=== PATIENT | male | born 1945 | race Caucasian/White ===

== ENCOUNTER 2018-04-19 04:13 | Outpatient (CLI) | payer OTHER, SELFPAY ==
[2018-04-19 07:29] LABS: INR 2.5 (1.0-3.5)
== END 2018-04-19 04:14 ==
PROVIDERS: PCP Internal Medicine; Visit Provider Internal Medicine
DX: I48.2 Chronic atrial fibrillation (principal)
CPT/HCPCS: 36415; 85610

== ENCOUNTER 2018-04-30 02:40 | Outpatient (CLI) | payer OTHER, SELFPAY | END 2018-04-30 02:41 | PROVIDERS: PCP Internal Medicine; Visit Provider Internal Medicine | DX: I48.91 Unspecified atrial fibrillation (principal) | CPT/HCPCS: 93225 ==

== ENCOUNTER 2018-05-02 00:39 | Outpatient (CLI) | payer OTHER, SELFPAY ==
--- NOTE | 2018-05-02 07:30 | MERGE_ITS ---
*[facility]* *[facility]* [address] [place] [address] Date of study: 05/02/2018 Transthoracic Echocardiography M-mode, complete 2D, complete spectral Doppler, and color Doppler *STUDY CONCLUSIONS* Impressions: The patient was in atrial fibrillation throughout study. This rhythm can interfere with accurate global and segmental wall motion analysis. Summary: 1. Left ventricle: The cavity size was normal. Wall thickness was normal. Systolic function was normal. The estimated ejection fraction was 55-60%. Wall motion was normal; there were no regional wall motion abnormalities. 2. Mitral valve: There was mild regurgitation. 3. Left atrium: The atrium was severely dilated. 4. Right ventricle: The cavity size was normal. Wall thickness was normal. Systolic function was normal. 5. Right atrium: The atrium was severely dilated. 6. Tricuspid valve: There was moderate regurgitation. 7. Pulmonary arteries: Pulmonary systolic pressure was moderately increased, in the range of 45mm Hg to 50mm Hg. *PATIENT PRESENTATION* Height: 175.3cm ((69in) ) S/D Pressure: 175 / 63 Weight: 103kg ((226.5lb) ) BSA: 2.27m^2 Test start time: 07:40 AM. Test stop time: 08:40 AM. ORDERING Nick Goode MD REFERRING Nick Goode MD PERFORMING Unknown PERFORMING [facility] DIRECTOR TALENT MANAGEMENT RT Warner (R)(CT)KONRAD *PROCEDURE DATA* Procedure information: The patient was identified by two identifiers. This study was interpreted by [facility]. Pertinent images and digital data are archived for permanent storage and are available for subsequent review. No prior study was available for comparison. Study status: Routine. Transthoracic echocardiography. M-mode, complete 2D, complete spectral Doppler, and color Doppler. A Transthoracic Echocardiogram was performed. Scanning was performed from the parasternal, apical, subcostal, and suprasternal notch acoustic windows. Images were obtained using an [id number] cardiac ultrasound machine. Image quality was adequate. Study completion: The patient tolerated the procedure well. There were no complications. History: PMH: . Hx of CHF. Dx chronic afib.. Hx CAD. *CARDIAC ANATOMY* Left ventricle: The cavity size was normal. Wall thickness was normal. Systolic function was normal. The estimated ejection fraction was 55-60%. Wall motion was normal; there were no regional wall motion abnormalities. The study was not technically sufficient to allow evaluation of LV diastolic dysfunction due to atrial fibrillation. Aortic valve: Trileaflet; normal thickness leaflets. Mobility was not restricted. Doppler: Transvalvular velocity was within the normal range. There was no stenosis. There was no significant regurgitation. VTI ratio of LVOT to aortic valve: 0.8. Valve area (VTI): 2.6cm^2. Indexed valve area (VTI): 1.1cm^2/m^2. Peak velocity ratio of LVOT to aortic valve: 0.74. Valve area (Vmax): 2.4cm^2. Indexed valve area (Vmax): 1cm^2/m^2. Mean velocity ratio of LVOT to aortic valve: 0.72. Valve area (Vmean): 2.3cm^2. Indexed valve area (Vmean): 1cm^2/m^2. Mean gradient (S): 5.3mm Hg. Peak gradient (S): 11.5mm Hg. Aorta: Aortic root: The aortic root was normal in size. Mitral valve: Structurally normal valve. Mobility was not restricted. Doppler: Transvalvular velocity was within the normal range. There was no evidence for stenosis. There was mild regurgitation. Valve area by pressure half-time: 4.1cm^2. Indexed valve area by pressure half-time: 1.8cm^2/m^2. Peak gradient (D): 7.1mm Hg. Left atrium: The atrium was severely dilated. Right ventricle: The cavity size was normal. Wall thickness was normal. Systolic function was normal. Pulmonic valve: Structurally normal valve. Doppler: Transvalvular velocity was within the normal range. There was no evidence for stenosis. There was no significant regurgitation. Peak gradient (S): 4.5mm Hg. Tricuspid valve: Structurally normal valve. Doppler: Transvalvular velocity was within the normal range. There was no evidence for stenosis. There was moderate regurgitation. Pulmonary artery: Pulmonary systolic pressure was moderately increased, in the range of 45mm Hg to 50mm Hg. Right atrium: The atrium was severely dilated. Pericardium: There was no pericardial effusion. Systemic veins: Inferior vena cava: Well visualized. The vessel was patent and normal in size. The respirophasic diameter changes were blunted (less than 50%). Baseline ECG: Bradycardia. Measurements Left ventricle Value Reference LV ID, ED, PLAX 5.6 cm 3.5 - 6.0 LV ID, ES, PLAX 3.6 cm 2.1 - 4.0 LV PW thickness, ED, PLAX 1.0 cm LV end-diastolic volume, 1-p A2C 114 ml LV ejection fraction, 1-p A2C 60 % LV end-diastolic volume, 1-p A4C 122 ml LV ejection fraction, 1-p A4C 54 % LV e', lateral 0.076 m/sec LV E/e', lateral 18 LV e', medial 0.068 m/sec LV E/e', medial 20 LV e', average 0.072 m/sec LV E/e', average 19 Ventricular septum Value Reference IVS thickness, ED, PLAX 1.1 cm LVOT Value Reference LVOT ID, A-P 2.0 cm LVOT area 3.2 cm^2 LVOT peak velocity, S 1.25 m/sec LVOT mean velocity, S 0.77 m/sec LVOT VTI, S 31.2 cm LVOT peak gradient, S 6.3 mm Hg LVOT mean gradient, S 2.9 mm Hg Stroke volume (SV), LVOT DP 100 ml Stroke index (SV/bsa), LVOT DP 44 ml/m^2 Aortic valve Value Reference Aortic valve peak velocity, S 1.7 m/sec Aortic valve mean velocity, S 1.07 m/sec Aortic valve VTI, S 39.0 cm Aortic mean gradient, S 5.3 mm Hg Aortic peak gradient, S 11.5 mm Hg VTI ratio, LVOT/AV 0.8 Aortic valve area, VTI 2.6 cm^2 Velocity ratio, peak, LVOT/AV 0.74 Aortic valve area, peak velocity 2.4 cm^2 Velocity ratio, mean, LVOT/AV 0.72 Aortic valve area, mean velocity 2.3 cm^2 Aortic valve area/bsa, mean velocity 1 cm^2/m^2 Aorta Value Reference Aortic root ID, ED 3.6 cm Ascending aorta ID, A-P, S 3.6 cm RVOT Value Reference RVOT VTI, S 23.5 cm Left atrium Value Reference LA ID, A-P, ES 5.0 cm LA ID/bsa, A-P 2.2 cm/m^2 <=2.2 LA area, ES, A4C (H) 37.6 cm^2 8.8 - 23.4 LA area, ES, A2C 32 cm^2 LA volume/bsa, ES, 1-p A4C 74 ml/m^2 LA volume, ES, 2-p 131 ml LA volume/bsa, ES, 2-p 58 ml/m^2 LA/aortic root ratio 1.39 Mitral valve Value Reference Mitral E-wave peak velocity 1.34 m/sec Mitral deceleration time 185 ms 150 - 230 Mitral pressure half-time 54 ms Mitral peak gradient, D 7.1 mm Hg Mitral valve area, PHT, DP 4.1 cm^2 Tricuspid valve Value Reference Tricuspid regurg peak velocity 3.4 m/sec Tricuspid peak RV-RA gradient 45.5 mm Hg Right atrium Value Reference RA area, ES, A4C (H) 30.7 cm^2 8.3 - 19.5 Pulmonic valve Value Reference Pulmonic peak gradient, S 4.5 mm Hg Legend: (L) and (H) shanice values outside specified reference range. I have personally reviewed the images and have reviewed and edited the reported findings. Electronically signed by Misael Jones 05/02/2018 09:12
== END 2018-05-02 00:40 ==
PROVIDERS: PCP Internal Medicine; Visit Provider Internal Medicine
DX: I48.91 Unspecified atrial fibrillation (principal); I08.1 Rheumatic disorders of both mitral and tricuspid valves; I51.7 Cardiomegaly
CPT/HCPCS: 93306

== ENCOUNTER 2018-05-03 08:00 | Outpatient (CLI) | payer OTHER, SELFPAY ==
--- NOTE | 2018-05-04 13:53 | HOLTER_ITS ---
DATE OF DICTATION: May 04, 2018 INDICATION: AFib Monitoring period 24 hours. Baseline atrial fibrillation. Average heart rate 42 bpm, minimum heart rate 35 bpm, maximum heart rate 59 bpm. Rare isolated ventricular ectopy. No non-sustained VT. Patient in atrial fibrillation throughout monitoring period. No significant pauses. Overall patient's atrial fibrillation appears very well-controlled with periods of slow ventricular r ates. Suggest reducing AV mason blocking agent dosing. No diary entries.
== END 2018-05-03 08:01 ==
PROVIDERS: PCP Internal Medicine; Visit Provider Internal Medicine
DX: I48.91 Unspecified atrial fibrillation (principal)
CPT/HCPCS: 93226

== ENCOUNTER 2018-05-04 09:30 | Outpatient (CLI) | payer OTHER, SELFPAY | END 2018-05-04 09:31 | PROVIDERS: PCP Internal Medicine; Visit Provider Internal Medicine Cardiovascular Disease | DX: I48.91 Unspecified atrial fibrillation (principal) | CPT/HCPCS: 93227 ==

== ENCOUNTER 2018-08-14 09:38 | Outpatient (REF) | payer OTHER, SELFPAY ==
[2018-08-14 13:19] LABS: Anion Gap 10.9 mmol/L (3-11); BUN 27 mg/dL (7-18); CO2 29.1 mmol/L (21.0-32.0); CREATININE 1.56 mg/dL (0.70-1.30); Calcium 9.8 mg/dL (8.5-10.1); Chloride 98 mmol/L (98-107); Estimated GFR 43.72 (mL/min/1.73m2); Glucose 267 mg/dL (70-100); Potassium 3.7 mmol/L (3.5-5.1); Sodium 138 mmol/L (136-145)
== END 2018-08-14 09:58 ==
LOC: NCHCN 09:38
PROVIDERS: PCP Internal Medicine; Visit Provider Internal Medicine
DX: E11.9 Type 2 diabetes mellitus without complications (principal); I10 Essential (primary) hypertension; R60.9 Edema, unspecified; I48.91 Unspecified atrial fibrillation; I25.10 Atherosclerotic heart disease of native coronary artery without angina pectoris
CPT/HCPCS: 80048

== ENCOUNTER → 2018-09-14 10:55 | Outpatient (BNVA) | payer OTHER, SELFPAY | PROVIDERS: PCP Internal Medicine; Visit Provider Internal Medicine Cardiovascular Disease | DX: I25.810 Atherosclerosis of coronary artery bypass graft(s) without angina pectoris (principal); I48.2 Chronic atrial fibrillation; I51.9 Heart disease, unspecified; I11.9 Hypertensive heart disease without heart failure; E78.5 Hyperlipidemia, unspecified; E11.9 Type 2 diabetes mellitus without complications; Z79.84 Long term (current) use of oral hypoglycemic drugs | CPT/HCPCS: 99214 ==

== ENCOUNTER 2018-11-16 12:49 | Outpatient (REF) | payer OTHER, SELFPAY ==
[2018-11-16 22:11] LABS: Anion Gap 12.6 mmol/L (3-11); BUN 28 mg/dL (7-18); CO2 27.4 mmol/L (21.0-32.0); CREATININE 1.57 mg/dL (0.70-1.30); Calcium 10.1 mg/dL (8.5-10.1); Chloride 98 mmol/L (98-107); Cholesterol 123 mg/dL (50-200); Glucose 270 mg/dL (70-100); HDL Cholesterol 25 mg/dL (40-60); LDL CHOLESTEROL 64 mg/dL (<100); Sodium 138 mmol/L (136-145); Triglyceride 231 mg/dL (30-150)
== END 2018-11-16 13:09 ==
LOC: NCHCN 12:49
PROVIDERS: PCP Internal Medicine; Visit Provider Internal Medicine
DX: I10 Essential (primary) hypertension (principal); E78.5 Hyperlipidemia, unspecified
CPT/HCPCS: 80048; 80061; 83721

== ENCOUNTER → 2019-06-06 10:09 | Outpatient (BNVA) | payer OTHER, SELFPAY | PROVIDERS: PCP Internal Medicine; Referring Provider Internal Medicine; Visit Provider Internal Medicine Cardiovascular Disease | DX: I25.10 Atherosclerotic heart disease of native coronary artery without angina pectoris (principal); E78.5 Hyperlipidemia, unspecified; I10 Essential (primary) hypertension; I48.2 Chronic atrial fibrillation; I34.0 Nonrheumatic mitral (valve) insufficiency; I27.20 Pulmonary hypertension, unspecified; E11.9 Type 2 diabetes mellitus without complications; Z79.4 Long term (current) use of insulin | CPT/HCPCS: 99214 ==

== ENCOUNTER 2019-06-06 10:26 | Outpatient (CLI) | payer OTHER, SELFPAY | END 2019-06-06 10:46 | PROVIDERS: PCP Internal Medicine; Visit Provider Internal Medicine Cardiovascular Disease | DX: I25.10 Atherosclerotic heart disease of native coronary artery without angina pectoris (principal); I48.2 Chronic atrial fibrillation; I10 Essential (primary) hypertension; E78.5 Hyperlipidemia, unspecified; I34.0 Nonrheumatic mitral (valve) insufficiency | CPT/HCPCS: 93005; 93010 ==

== ENCOUNTER 2019-08-02 01:40 | Outpatient (CLI) | payer OTHER, SELFPAY ==
[2019-08-02 11:24] LABS: INR 1.8 (0.9-1.1); Prothrombin Time 17.8 sec (9.3-11.0)
== END 2019-08-02 02:00 ==
PROVIDERS: PCP Internal Medicine; Visit Provider Internal Medicine
DX: I48.91 Unspecified atrial fibrillation (principal); Z79.01 Long term (current) use of anticoagulants
CPT/HCPCS: 36415; 85610

== ENCOUNTER 2019-08-16 01:30 | Outpatient (CLI) | payer OTHER, SELFPAY ==
[2019-08-16 08:15] LABS: INR 2.3 (0.9-1.1); Prothrombin Time 22.9 sec (9.3-11.0)
== END 2019-08-16 01:50 ==
PROVIDERS: PCP Internal Medicine; Visit Provider Internal Medicine
DX: I48.91 Unspecified atrial fibrillation (principal); Z79.01 Long term (current) use of anticoagulants
CPT/HCPCS: 36415; 85610

== ENCOUNTER 2019-09-20 08:03 | Outpatient (CLI) | payer OTHER, SELFPAY ==
[2019-09-20 11:43] LABS: INR 2.3 (0.9-1.1); Prothrombin Time 22.8 sec (9.3-11.0)
== END 2019-09-20 08:23 ==
PROVIDERS: PCP Internal Medicine; Visit Provider Internal Medicine
DX: I48.91 Unspecified atrial fibrillation (principal); Z79.01 Long term (current) use of anticoagulants
CPT/HCPCS: 36415; 85610

== ENCOUNTER 2019-10-15 09:40 | Outpatient (REF) | payer OTHER, SELFPAY ==
[2019-10-15 14:39] LABS: INR 1.9 (0.9-1.1); Prothrombin Time 19.1 sec (9.3-11.0)
[2019-10-15 15:07] LABS: Anion Gap 10.2 mmol/L (3-11); BUN 21 mg/dL (7-18); CO2 27.8 mmol/L (21.0-32.0); CREATININE 1.27 mg/dL (0.70-1.30); Chloride 102 mmol/L (98-107); Estimated GFR 55.29 (mL/min/1.73m2); Glucose 212 mg/dL (74-106); Potassium 4.1 mmol/L (3.5-5.1); Sodium 140 mmol/L (136-145); TSH 1.23 uIU/mL (0.36-3.74)
== END 2019-10-15 10:00 ==
LOC: NCHCN 09:40
PROVIDERS: PCP Internal Medicine; Visit Provider Internal Medicine
DX: I10 Essential (primary) hypertension (principal); I48.91 Unspecified atrial fibrillation; R40.0 Somnolence; Z79.01 Long term (current) use of anticoagulants
CPT/HCPCS: 80048; 84443; 85610

== ENCOUNTER 2019-11-05 02:26 | Outpatient (CLI) | payer OTHER, SELFPAY ==
[2019-11-05 07:54] LABS: INR 1.7 (0.9-1.1); Prothrombin Time 17.3 sec (9.3-11.0)
== END 2019-11-05 02:46 ==
PROVIDERS: PCP Internal Medicine; Visit Provider Internal Medicine
DX: I48.91 Unspecified atrial fibrillation (principal); Z79.01 Long term (current) use of anticoagulants
CPT/HCPCS: 36415; 85610

== ENCOUNTER → 2020-02-11 13:01 | Outpatient (BNVA) | payer OTHER, SELFPAY | PROVIDERS: PCP Internal Medicine; Referring Provider Internal Medicine; Visit Provider Internal Medicine Cardiovascular Disease | DX: I25.10 Atherosclerotic heart disease of native coronary artery without angina pectoris (principal); I48.2 Chronic atrial fibrillation; I10 Essential (primary) hypertension | CPT/HCPCS: 99213 ==

== ENCOUNTER 2020-04-29 00:11 | Emergency (ER) | payer OTHER, SELFPAY ==
[2020-04-29 00:14] VITALS: BP 181/68; PULSE 69; RESP 16; TEMP 36.6; O2SAT 96
--- NOTE | 2020-04-29 00:15 | RT.EKG_ITS ---
APPROVED REPORT Exam: Resting ECG Patient Location: E HR:53 bpm ECG Measurements Heart Rate 53 AXIS TN [id number] P [id number] QRSd 110 QRS -1 QT 498 T 78 QTc 470 Conclusion EKG 00: 25 Rate 53, atrial fibrillation, no evidence of STEMI. Notable artifact.
--- NOTE | 2020-04-29 00:15 | DI.RAD_ITS ---
EXAM: XR CHEST 2V PA LATERAL CLINICAL HISTORY: SOB TECHNIQUE: 2D digital imaging was performed. COMPARISON: No exams were available for comparison FINDINGS: The left diaphragm is elevated. Patient is status post CABG. The heart is enlarged. There are unde rlying fibrotic changes. Infiltrate, effusion or pulmonary edema is seen. There are no thoracic com pression fractures or evidence of pneumothorax. IMPRESSION: Cardiomegaly. No acute abnormality.
--- NOTE | 2020-04-29 00:20 | ED.GENADUL_ITS ---
Discharge Plan Disposition Patient Disposition: HOME Condition: Good Discharge Details Chief Complaint: RespSymp Clinical Impression: Chronic dyspnea Primary Care Provider: Nick Goode ED Provider: Sam Crews Home Meds and New Rx's Prescriptions: New albuterol sulfate 90 mcg/actuation HFA aerosol inhaler 1 inh IH ONCE Qty: 6.7 RF: 0 Continued nitroglycerin [Nitrostat] 0.4 mg tablet, sublingual 0.4 mg SL Q5M PRNRF: 0 glipizide 10 mg tablet 10 mg PO BID RF: 0 losartan 100 mg tablet 100 mg PO DAILY RF: 0 insulin glargine 100 unit/mL (3 mL) insulin pen 30 unit SC QHS RF: 0 hydrochlorothiazide 25 mg tablet 25 mg PO DAILY RF: 0 atorvastatin [Lipitor] 40 MG tablet 80 mg PO DAILY RF: 0 metformin 500 MG tablet extended release 24 hr 1,000 mg PO BID RF: 0 warfarin [Coumadin] 5 mg tablet 5 mg PO DIRECTED RF: 0 furosemide 40 MG tablet 40 mg PO DAILY RF: 0 isosorbide mononitrate [Imdur] 30 MG tablet extended release 24 hr 30 mg PO DAILY RF: 0 amlodipine 10 MG tablet 10 mg PO DAILY RF: 0 Januvia 100 MG tablet 100 mg PO DAILY RF: 0 Victoza 2-Sam 0.6 mg/0.1 mL (18 mg/3 mL) Pen Injector 0.6 mg SUBCUT DAILY RF: 0 Discharge Instructions Instructions: Dyspnea (ED) Additional Instructions: At this time your work-up shows no concerning abnormality for your heart to speak of. No signs of a heart attack. There is no evidence of pneumonia on your chest x-ray. You do appear to be very mildly fluid overloaded. Tomorrow please take your furosemide once in the morning as you normally do and then once again in the evening. Avoid salty or preserved foods. As you had the notable improvement with the breathing treatment, I am sending you home with an inhaler and a spacer. Please take 2 puffs as needed when you feel the mild shortness of breath associated with these foggy evenings. If you notice any worsening of your symptoms, or any new symptoms such as vomiting, diarrhea, fever, chills, shortness of breath, chest pain, numbness, weakness, or fainting , please return immediately to the emergency department for reevaluation. Please follow up with your primary care provider as soon as possible for reassessment and reevaluation. As always, it was a pleasure participating in your medical care zafar tamayo. Referrals: Nick Goode MD [Primary Care Provider] - Medical Decision Making This is a very pleasant 74-year-old male with a past medical history of congestive heart failure hypertension, high cholesterol, type 2 diabetes, previous CABG, atrial fibrillation on Coumadin, who presents today for evaluation of mild shortness of breath. The patient states that for the past 3 to 4 weeks he has had mild intermittent shortness of breath, no associated cough, fever, chills, chest pain, or pleuritic chest pain. He states that s hortness of breath only seems to come on when it is foggy out at night. He states that it usually occurs while at rest, and is improved when he gets up and walks around. It is not made worse when he lies down flat. He has no known diagnosis of COPD. He denies any chest pressure or tearing sensation in his chest. Denies PE risk factors such as recent long car rides, immobilization, recent surgery, prior history of DVT or PE, family history of PE or DVT, morbid obesity, exogenous estrogen and smoking, hemoptysis, history of cancer. He denies any significant recent weight gain, or other complaints. Exam is notably unremarkable, no signs of hypoxemia, respiratory distress. Lung sounds are clear. No evidence of significant fluid overload. Symptoms are slightly atypical, may be related to mild asthma or musculoskeletal component. We will give a DuoNeb to see if this improves his symptoms. We will evaluate for cardiac etiology although this seems less likely. Only a single troponin is indicated at this time is a symptoms have been present for weeks and does not notably been worsening. PE is unlikely, we will check his INR. We will get a chest x-ray. Otherwise the patient is notably stable at this time. 1:40 AM Patient's laboratory work-up is returned, relatively benign, no white count left shift, no bandemia. X-ray shows no evidence of pneumonia or consolidation per radiology. INR is 2.1 and appropriate. Electrolytes normal and stable, renal function stable, troponin normal, proBNP is elevated at 1700, except there is no evidence of significant fluid overload on chest x-ray. And with only trace pitting edema in the lower extremities and no evidence of positional nocturnal dyspnea, I would say that his symptoms are inconsistent with a significant CHF exacerbation. I do think you would be reasonable to double up on his Lasix for a day, this has been conveyed to the patient. We did give the patient a breathing treatment and he did note significant improvement of his symptomatology. Lung sounds remain clear. We will send him home with an albuterol inhaler and a spacer. We did do an ambulatory pulse ox here in the emergency department and he did extremely well, no hypoxemia, shortness of breath tachypnea or tachycardia. At this time the patient signs and symptoms are clinically inconsistent with ACS, PE, severe heart failure, pneumonia or severe COPD exacerbation. His signs and symptoms are instead consistent with very mild/minimal fluid overload, and mild reactive airway disease. Patient will be discharged home. I did contact the patient's Ashley and discussed the case with her. I have extensively reviewed the treatment plan and discharge instructions with the patient and their family. I have addressed all patient concerns at this time. The patient and family was made aware of what symptoms to monitor for that would warrant a return to the emergency department. Discussed the plan with the patient and family, they demonstrate verbal understanding and agreement with our assessment and plan at this time. EKG 00: 25 Rate 53, atrial fibrillation, no evidence of STEMI. Notable artifact. FINDINGS: Mildly elevated left hemidiaphragm Lungs: Mild chronic interstitial prominence. Question mild right basilar subsegmental atelectasis No consolidation. Pleural space: No pleural effusion. No pneumothorax. Heart/Mediastinum: Status post CABG No cardiomegaly. Bones/joints: Unremarkable. IMPRESSION: No acute findings. No radiographic evidence for pneumonia Thank you for allowing us to participate in the care of your patient. Dictated and Authenticated by: Luis Antonio Baer MD 04/29/2020 1:27 AM Eastern Time ([place] & [place]) HPI General Date/Time Provider Initiated Documentation: 04/29/20 00:12 . HPI Narrative: This is a very pleasant 74-year-old male with a past medical history of congestive heart failure hypertension, high cholesterol, type 2 diabetes, previous CABG, atrial fibrillation on Coumadin, who presents today for evaluation of mild shortness of breath. The patient states that for the past 3 to 4 weeks he has had mild intermittent shortness of breath, no associated cough, fever, chills, chest pain, or pleuritic chest pain. He states that shortness of breath only seems to come on when it is foggy out at night. He states that it usually occurs while at rest, and is improved when he gets up and walks around. He denies any chest pressure or tearing sensation in his chest. Denies PE risk factors such as recent long car rides, immobilization, recent surgery, prior history of DVT or PE, family history of PE or DVT, morbid obesity, exogenous estrogen and smoking, hemoptysis, history of cancer. He denies any significant recent weight gain, or other complaints. No other complaints or modifying factors at this time. Related Data Home Medications Medication Instructions Recorded Confirmed Januvia 100 mg PO DAILY 08/31/14 04/29/20 amlodipine 10 mg PO DAILY 08/31/14 04/29/20 atorvastatin [Lipitor] 80 mg PO DAILY 08/31/14 04/29/20 furosemide 40 mg PO DAILY 08/31/14 04/29/20 isosorbide mononitrate [Imdur] 30 mg PO DAILY 08/31/14 04/29/20 metformin 1,000 mg PO BID 08/31/14 04/29/20 glipizide 10 mg tablet 10 mg PO BID 06/06/19 04/29/20 hydrochlorothiazide 25 mg tablet 25 mg PO DAILY 06/06/19 04/29/20 insulin glargine 100 unit/mL (3 30 unit SC QHS ml 06/06/19 04/29/20 mL) subcutaneous pen losartan 100 mg tablet 100 mg PO DAILY 06/06/19 04/29/20 nitroglycerin 0.4 mg sublingual 0.4 mg SL Q5M PRN 06/06/19 04/29/20 tablet warfarin 5 mg tablet 5 mg PO DIRECTED tab 06/06/19 04/29/20 Victoza 2-Sam 0.6 mg SUBCUT DAILY 04/29/20 04/29/20 albuterol sulfate 1 inh IH ONCE #6.7 gm 04/29/20 Previous Rx's Medication Instructions Recorded albuterol sulfate 1 inh IH ONCE #6.7 gm 04/29/20 Allergies Allergy/AdvReac Type Severity Reaction Status Date / Time Penicillins Allergy Severe Swelling/Ed Verified 02/11/20 13:11 vanessa General Stated Complaint: RespSymp HANH: 2 Review of Systems All systems reviewed & are unremarkable except as noted in HPI and below [facility] Social History Smoking/Tobacco Use Status: Former Tobacco Use Alcohol Intake: never Drug use: Never Substance use type: does not use Do you feel safe at home: Yes Do you feel safe in your relationship?: Yes Exam Narrative Exam Narrative: 1.Const: Well-nourished, Well-developed, appearing stated age 2.Eyes: PERRL, no conjunctival injection, and symmetrical lids. 3.ENT: Atraumatic external nose and ears. Moist MM. Neck: Symmetric, trachea midline, No thyromegaly. 4.CVS: +S1/S2, No murmurs or gallops. Peripheral pulses 2+ and equal in all extremities. Brisk capillary refill in all extremities. Radial pulses +2 bilaterally and symmetric 5.RESP: Unlabored respiratory effort. Clear to auscultation bilaterally. No wheezes rales or rhonchi 6.GI: Soft, Nontender/Nondistended, No hepatosplenomegaly. No guarding or rebound. 7.MSK: Normocephalic/Atraumatic, Extremities w/o deformity or ttp No cyanosis or clubbing, Normal movement of all extremities, trace pitting edema in the lower extremities, no calf tenderness. No asymmetric edema. 8.Skin: Warm, Dry. No rashes or lesions. 9.Neuro: title insurance agent II-XII grossly intact. Sensation grossly intact, no focal neurologic deficits. 10.Psych: (AAO) x3. Appropriate mood and affect Course Vital Signs Vital signs: Vital Signs Temperature 36.6 C 04/29/20 00:14 Pulse 69 04/29/20 00:14 Respiratory Rate 16 04/29/20 00:14 Pulse Oximetry 96 04/29/20 00:14 Temperature 36.6 C 04/29/20 00:14 Temperature Source Skin 04/29/20 00:14 Pulse 69 04/29/20 00:14 Respiratory Rate 16 04/29/20 00:14 Blood Pressure Position Supine 04/29/20 00:14 Pulse Oximetry 96 04/29/20 00:14 Oxygen Delivery Method Room Air 04/29/20 00:14 Oxygen Flow Rate 0 08/19/20 00:14 Pain Level 0 04/29/20 00:14
[2020-04-29 00:43] LABS: Abs Immature Grans 0.04 10^3/uL (0.0-0.06); Absolute Basophil Count 0.04 10^3/uL (0.0-0.2); Absolute Eosinophil Count 0.13 10^3/uL (0.0-0.7); Absolute Lymphocyte Count 1.22 10^3/uL (1.2-3.4); Absolute Monocyte Count 1.06 10^3/uL (0.1-0.8); Absolute Neutrophil Count 6.44 10^3/uL (1.2-6.7); Basophils % 0.4; Eosinophils % 1.5; HCT 41.6 % (40.0-50.0); HGB 14.1 g/dL (13.5-17.5); Immature Grans % 0.4; Lymphocytes % 13.7; MCH 30.6 pg (27.0-33.0); MCHC 33.9 % (32.0-36.0); MCV 90.2 fL (80-95); MPV 11.5 fL (8.0-11.0); Monocytes % 11.9; Neutrophils % 72.1; Nucleated RBC 0 %; Platelet Count 163 10^3/uL (130-400); RBC 4.61 10^6/uL (4.36-5.78); RDW 12.6 % (11.8-14.1); RDW-SD 41.5 fL; WBC 8.93 10^3/uL (4.4-10.8)
[2020-04-29] MEDS: Albuterol/Ipratropium 3 ML UPD VIAL UPD (00:46)
[2020-04-29 01:05] LABS: INR 2.1 (0.9-1.1); PTT Activated 29.7 sec (21.0-31.4); Prothrombin Time 21.1 sec (9.3-11.0)
[2020-04-29 01:13] LABS: ALT 43 U/L (16-63); AST 23 U/L (15-37); Albumin 3.7 g/dL (3.4-5.0); Alkaline Phosphatase 73 U/L (46-116); Anion Gap 8.7 mmol/L (3-11); BUN 22 mg/dL (7-18); Bilirubin, Total 0.8 mg/dL (0.2-1.0); CO2 29.3 mmol/L (21.0-32.0); CREATININE 1.35 mg/dL (0.70-1.30); Calcium 9.5 mg/dL (8.5-10.1); Chloride 100 mmol/L (98-107); Estimated GFR 51.38 (mL/min/1.73m2); Glucose 185 mg/dL (74-106); NT-proBNP 1769 pg/mL (<300); Potassium 3.8 mmol/L (3.5-5.1); Sodium 138 mmol/L (136-145); Total Protein 7.8 g/dL (6.4-8.2)
[2020-04-29 01:16] LABS: Troponin I < 0.05 ng/mL (<0.06)
--- NOTE | 2020-04-29 01:28 | DI.VRAD_ITS ---
PROCEDURE INFORMATION: Exam: XR Chest, 2 Views Exam date and time: 04/29/2020 12:20 AM Age: 74 years old Clinical indication: Shortness of breath; Prior surgery; Surgery date: 6+ months; Surgery type: Heart surgery many years ago in 40's; Patient HX: SOB TECHNIQUE: Imaging protocol: XR of the chest Views: 2 views. COMPARISON: No relevant prior studies available. FINDINGS: Mildly elevated left hemidiaphragm Lungs: Mild chronic interstitial prominence. Question mild right basilar subsegmental atelectasis No consolidation. Pleural space: No pleural effusion. No pneumothorax. Heart/Mediastinum: Status post CABG No cardiomegaly. Bones/joints: Unremarkable. IMPRESSION: No acute findings. No radiographic evidence for pneumonia Dictated and Authenticated by: Luis Antonio Baer MD. Ordering:MAURICE Vargas MD
[2020-04-29] MEDS: Inhaler, Assist Device 1 EACH MC (01:40)
[2020-04-29 01:41] VITALS: BP 163/66; PULSE 64; RESP 16; O2SAT 97
--- NOTE | 2020-04-29 01:41 | NUR.NOTE ---
ambulatory sat 97%
== END 2020-04-29 01:45 | disposition home or self-care (01) ==
PROVIDERS: Emergency Provider Student in an Organized Health Care Education/Training Program; PCP Internal Medicine
DX: R06.00 Dyspnea, unspecified (principal); E87.70 Fluid overload, unspecified; I11.0 Hypertensive heart disease with heart failure; I50.9 Heart failure, unspecified; E11.9 Type 2 diabetes mellitus without complications; Z79.84 Long term (current) use of oral hypoglycemic drugs; Z87.891 Personal history of nicotine dependence
CPT/HCPCS: 36415; 80053; 93005; 94640; 99285; 71046; 83880; 84484; 85025; 85610; 85730; 93010; 99284; J7620

== ENCOUNTER 2020-04-29 15:09 | Emergency (ER) | payer OTHER, SELFPAY ==
--- NOTE | 2020-04-29 15:14 | ED.GENADUL_ITS ---
Discharge Plan Disposition Patient Disposition: HOME Condition: Stable Discharge Details Chief Complaint: SOB Clinical Impression: Chronic dyspnea, Anxiety, Insomnia Primary Care Provider: Nick Goode ED Provider: Kezia Couch Home Meds and New Rx's Prescriptions: Continued nitroglycerin [Nitrostat] 0.4 mg tablet, sublingual 0.4 mg SL Q5M PRNRF: 0 glipizide 10 mg tablet 10 mg PO BID RF: 0 losartan 100 mg tablet 100 mg PO DAILY RF: 0 insulin glargine 100 unit/mL (3 mL) insulin pen 40 unit SC QHS RF: 0 hydrochlorothiazide 25 mg tablet 25 mg PO DAILY RF: 0 atorvastatin [Lipitor] 40 MG tablet 80 mg PO DAILY RF: 0 metformin 500 MG tablet extended release 24 hr 1,000 mg PO BID RF: 0 warfarin [Coumadin] 5 mg tablet 5 mg PO DIRECTED RF: 0 furosemide 40 MG tablet 40 mg PO DAILY RF: 0 isosorbide mononitrate [Imdur] 30 MG tablet extended release 24 hr 30 mg PO DAILY RF: 0 amlodipine 10 MG tablet 10 mg PO DAILY RF: 0 Januvia 100 MG tablet 100 mg PO DAILY RF: 0 Victoza 2-Sam 0.6 mg/0.1 mL (18 mg/3 mL) Pen Injector 0.6 mg SUBCUT DAILY RF: 0 albuterol sulfate 90 mcg/actuation HFA aerosol inhaler 1 inh IH ONCE Qty: 6.7 RF: 0 Discharge Instructions Instructions: Dyspnea (ED), Anxiety (ED) Additional Instructions: Take the Ativan as needed and directed for anxiety or sleep. Follow-up with Dr. Goode on your telephone call tomorrow morning. Take an extra dose of Lasix as directed by your primary care doctor's office this evening. Return immediately to the emergency department if you develop any worsening or new concerning symptoms. Discharge Data Discharge Physician: Kezia Couch Medical Decision Making 74-year-old male with a history of coronary artery disease, history of coronary stent placement and CABG, hypertension, hyperlipidemia presents for shortness of breath for the past week that developed after starting Jardiance for his diabetes. Also admits to insomnia for 3 weeks. Patient seen here earlier today for same complaint and had reassuring work-up with a negative troponin, unremarkable EKG and negative chest x-ray and was discharged home. Plan was for patient to follow-up with Dr. Goode in the morning on a telephone call for possible anti-anxiety medication. Per Sandy at [facility], recommends patient be sent home with an antianxiety medication and to help him with sleep. BP mildly hypertensive, remainder vitals within normal limits. Patient has clear lungs. He denies any pain. An EKG was done which is negative for any acute ST ischemic changes. Patient states he feels that his shortness of breath is better with ambulation and is worse at night when he tries to sleep and he feels that he is mainly nervous and anxious. Do not see indication for repeat labs or imaging. A dose of Ativan was given here with improvement of his symptoms. We will send home with 4 tabs of 0.5 mg Ativan with plan for patient to follow- up with his PCP in the morning. Usual and customary return precautions given prior to discharge. Medical Records Medical records reviewed: Yes I reviewed the patient's medical records. ECG Data Attestation: I personally reviewed and interpreted this ECG (s) as follows: Interpretation: Rate of 68, junctional, to inversion in lead I and aVL seen in previous EKG. No acute ST elevation or depression. QRS 103. QTc 435. HPI General Mode of arrival: ambulatory . Date/Time Provider Initiated Documentation: 04/29/20 15:11 . Limitations to Documentation: no limitations . Information obtained by: patient . HPI Narrative: Patient is a 74-year-old male with a history of coronary artery disease, diabetes, hypertension, high cholesterol, OR and obesity who presents for shortness of breath. He states his shortness of breath is improved with ambulation. He states he has difficulty sleeping at night due to the shortness of breath. He has had bilateral lower extremity edema for the past week which she states is not worsening and for which he discussed with his PCP with plans to take an extra dose of his lasix this evening. Patient was seen here earlier this morning for the same complaints and had reassuring work-up and chest x-ray and was discharged home. Sandy from [facility] called the ED stating that patient has a phone call planned with Dr. Goode in the morning for concern for possible anxiety. Sandy requested that patient receive an anxiety med in the ED and possibly a few doses for home. Patient feels also that he has nervousness and anxiety which has been contributing to his lack of sleep for the last several weeks. He denies any fever, cough, chest pain, back pain and has had normal appetite. Related Data Home Medications Medication Instructions Recorded Confirmed Januvia 100 mg PO DAILY 08/31/14 04/29/20 amlodipine 10 mg PO DAILY 08/31/14 04/29/20 atorvastatin [Lipitor] 80 mg PO DAILY 08/31/14 04/29/20 furosemide 40 mg PO DAILY 08/31/14 04/29/20 isosorbide mononitrate [Imdur] 30 mg PO DAILY 08/31/14 04/29/20 metformin 1,000 mg PO BID 08/31/14 04/29/20 glipizide 10 mg tablet 10 mg PO BID 06/06/19 04/29/20 hydrochlorothiazide 25 mg tablet 25 mg PO DAILY 06/06/19 04/29/20 insulin glargine 100 unit/mL (3 40 unit SC QHS ml 06/06/19 04/29/20 mL) subcutaneous pen losartan 100 mg tablet 100 mg PO DAILY 06/06/19 04/29/20 nitroglycerin 0.4 mg sublingual 0.4 mg SL Q5M PRN 06/06/19 04/29/20 tablet warfarin 5 mg tablet 5 mg PO DIRECTED tab 06/06/19 04/29/20 Victoza 2-Sam 0.6 mg SUBCUT DAILY 04/29/20 04/29/20 albuterol sulfate 1 inh IH ONCE #6.7 gm 04/29/20 04/29/20 Previous Rx's Medication Instructions Recorded albuterol sulfate 1 inh IH ONCE #6.7 gm 04/29/20 Allergies Allergy/AdvReac Type Severity Reaction Status Date / Time Penicillins Allergy Severe Swelling/Ed Verified 04/29/20 15:23 vanessa General HANH: 2 Review of Systems All systems reviewed & are unremarkable except as noted in HPI and below Constitutional Constitutional: Reports as per HPI, Denies chills and Denies fever(s) Eyes Eyes: Denies blurry vision ENT Ears, Nose, Mouth, and Throat: Denies dizziness, Denies sore throat and Denies throat swelling Cardiovascular Cardiovascular: Denies chest pain and Denies dyspnea Respiratory Respiratory: Denies cough and Denies dyspnea Gastrointestinal Gastrointestinal: Denies abdominal pain, Denies diarrhea and Denies vomiting Genitourinary Genitourinary: Denies hematuria and Denies dysuria Musculoskeletal Musculoskeletal: Denies back pain and Denies numbness Integumentary/Breasts Skin/Breast: Denies lesions and Denies rash Neurologic Neurologic: Denies dizziness, Denies localized weakness and Denies numbness Allergic/Immunologic Allergic/Immunologic: Denies throat swelling [facility] Medical History (Updated 04/29/20 @ 16:23 by Kezia Couch DO) Atrial fibrillation (Inactive) CAD (coronary artery disease) (Inactive) Dyslipidemia (Inactive) Hypertension (Inactive) Pulmonary hypertension (Inactive) Social History Smoking/Tobacco Use Status: Former Tobacco Use Alcohol Intake: never Drug use: Never Substance use type: does not use Do you feel safe at home: Yes Do you feel safe in your relationship?: Yes Exam Const General: cooperative, healthy appearing and no acute distress HENMT Head: normal to inspection Face and sinus: normal facial exam Eyes General: appearance normal, both eyes and all related structures Pupils: PERRL EOM: EOM intact bilaterally Neck Neck: normal visual inspection and No submandibular swelling Lymphatic: no lymphadenopathy noted Chest Chest: normal inspection of the chest and no tenderness Resp Effort & Inspection: normal respiratory effort and able to speak in complete sentences Auscultation: clear to auscultation bilaterally Cardio Rate: regular rate Rhythm: regular rhythm GI Inspection: normal to inspection Palpation: soft, not firm, not rigid and nontender Auscultation: normal bowel sounds Back/Spine/Pelvis Pelvis: no pain with anterior-posterior compression Skin General skin exam: no rashes or lesions noted Neuro General: patient alert, patient awake and patient oriented x3 Cognition: normal cognition Speech: speech normal Motor: muscle tone normal throughout Sensory Exam: no sensory deficits noted Extrem General: normal to inspection, full ROM, capillary refill normal, no calf tenderness bilaterally and no edema Psych Appearance: grossly normal Mental Status: mental status grossly normal Speech and Movement: speech and movement normal Affect: normal affect
[2020-04-29 15:19] VITALS: BP 179/77; PULSE 68; RESP 18; TEMP 36.7; O2SAT 97
[2020-04-29 15:45] VITALS: RESP 18
--- NOTE | 2020-04-29 16:00 | RT.EKG_ITS ---
APPROVED REPORT Exam: Resting ECG Patient Location: E HR:68 bpm ECG Measurements Heart Rate 68 AXIS OH [id number] P [id number] QRSd 103 QRS 3 QT 409 T 172 QTc 435 Conclusion Junctional. No acute ST/T wave ischemic findings. No acute change from previous EKG.
[2020-04-29] MEDS: LORazepam 0.5 MG TAB PO (16:15)
[2020-04-29 16:20] VITALS: PULSE 64; RESP 23; O2SAT 95
[2020-04-29 16:30] VITALS: PULSE 62; RESP 19; O2SAT 96
[2020-04-29 16:34] VITALS: BP 163/69; PULSE 66; PULSE 69; RESP 20; O2SAT 95
[2020-04-29] MEDS: LORazepam 0.5 MG TAB 2 MG PO (16:43)
== END 2020-04-29 16:44 | disposition home or self-care (01) ==
PROVIDERS: Emergency Provider Physician Assistant; PCP Internal Medicine
DX: R06.00 Dyspnea, unspecified (principal); G47.00 Insomnia, unspecified; F41.9 Anxiety disorder, unspecified; I10 Essential (primary) hypertension
CPT/HCPCS: 93005; 99283; 93010

== ENCOUNTER 2020-12-01 10:10 | Outpatient (REF) | payer OTHER, SELFPAY ==
[2020-12-01 14:08] LABS: Anion Gap 9.7 mmol/L (3-11); BUN 23 mg/dL (7-18); CO2 26.3 mmol/L (21.0-32.0); CREATININE 1.1 mg/dL (0.70-1.30); Calcium 9.4 mg/dL (8.5-10.1); Chloride 105 mmol/L (98-107); Glucose 122 mg/dL (74-106); Potassium 4.5 mmol/L (3.5-5.1); Sodium 141 mmol/L (136-145)
== END 2020-12-01 10:11 | disposition home or self-care (01) ==
LOC: NCHCN 10:10
PROVIDERS: PCP Internal Medicine; Visit Provider Internal Medicine
DX: I10 Essential (primary) hypertension (principal)
CPT/HCPCS: 80048

== ENCOUNTER 2021-01-26 18:44 | Outpatient (REF) | payer OTHER, SELFPAY ==
[2021-01-26 20:39] LABS: HCT 39.3 % (40.0-50.0); HGB 13.1 g/dL (13.5-17.5); MCH 29.6 pg (27.0-33.0); MCHC 33.3 % (32.0-36.0); MCV 88.9 fL (80-95); MPV 12.7 fL (8.0-11.0); Platelet Count 161 10^3/uL (130-400); RBC 4.42 10^6/uL (4.36-5.78); RDW 13.4 % (11.8-14.1); RDW-SD 44.2 fL; WBC 8.36 10^3/uL (4.4-10.8)
[2021-01-26 20:51] LABS: Anion Gap 10.6 mmol/L (3-11); BUN 25 mg/dL (7-18); CO2 24.4 mmol/L (21.0-32.0); CREATININE 1.3 mg/dL (0.70-1.30); Calcium 9.5 mg/dL (8.5-10.1); Chloride 104 mmol/L (98-107); Estimated GFR 53.53 (mL/min/1.73m2); Glucose 143 mg/dL (74-106); Potassium 5.1 mmol/L (3.5-5.1); Sodium 139 mmol/L (136-145)
== END 2021-01-26 18:45 | disposition home or self-care (01) ==
LOC: NCHCN 18:44
PROVIDERS: PCP Internal Medicine; Visit Provider Internal Medicine
DX: I10 Essential (primary) hypertension (principal); R10.9 Unspecified abdominal pain
CPT/HCPCS: 80048; 85027

== ENCOUNTER 2021-03-02 11:36 | Outpatient (REF) | payer OTHER, SELFPAY ==
[2021-03-02 14:52] LABS: Anion Gap 12.3 mmol/L (3-11); BUN 49 mg/dL (7-18); CO2 24.7 mmol/L (21.0-32.0); CREATININE 2.1 mg/dL (0.70-1.30); Calcium 10.3 mg/dL (8.5-10.1); Chloride 99 mmol/L (98-107); Estimated GFR 30.78 (mL/min/1.73m2); Glucose 158 mg/dL (74-106); Potassium 5.4 mmol/L (3.5-5.1); Sodium 136 mmol/L (136-145)
== END 2021-03-02 11:37 | disposition home or self-care (01) ==
LOC: NCHCN 11:36
PROVIDERS: PCP Internal Medicine; Visit Provider Internal Medicine
DX: I10 Essential (primary) hypertension (principal)
CPT/HCPCS: 80048

== ENCOUNTER → 2021-03-05 13:52 | Outpatient (BNVA) | payer OTHER, SELFPAY | PROVIDERS: PCP Internal Medicine; Referring Provider Internal Medicine; Visit Provider Internal Medicine Cardiovascular Disease | DX: I50.30 Unspecified diastolic (congestive) heart failure (principal); I25.10 Atherosclerotic heart disease of native coronary artery without angina pectoris; I10 Essential (primary) hypertension; Z79.01 Long term (current) use of anticoagulants | CPT/HCPCS: 99214 ==

== ENCOUNTER → 2021-05-21 10:48 | Outpatient (BNVA) | payer OTHER, SELFPAY | PROVIDERS: PCP Internal Medicine; Referring Provider Internal Medicine; Visit Provider Internal Medicine Cardiovascular Disease | DX: I50.30 Unspecified diastolic (congestive) heart failure (principal); I25.10 Atherosclerotic heart disease of native coronary artery without angina pectoris; I11.0 Hypertensive heart disease with heart failure | CPT/HCPCS: 99214; 99213 ==

== ENCOUNTER 2021-05-28 21:20 | Outpatient (REF) | payer OTHER, SELFPAY ==
[2021-05-28 21:28] LABS: Abs Immature Grans 0.04 10^3/uL (0.0-0.06); Absolute Basophil Count 0.03 10^3/uL (0.0-0.2); Absolute Eosinophil Count 0.11 10^3/uL (0.0-0.7); Absolute Lymphocyte Count 1.18 10^3/uL (1.2-3.4); Absolute Monocyte Count 0.97 10^3/uL (0.1-0.8); Absolute Neutrophil Count 6.81 10^3/uL (1.2-6.7); Basophils % 0.3; Eosinophils % 1.2; HCT 40.2 % (40.0-50.0); HGB 13.1 g/dL (13.5-17.5); Immature Grans % 0.4; Lymphocytes % 12.9; MCH 29.9 pg (27.0-33.0); MCHC 32.6 % (32.0-36.0); MCV 91.8 fL (80-95); MPV 12.2 fL (8.0-11.0); Monocytes % 10.6; Neutrophils % 74.6; Nucleated RBC 0 %; Platelet Count 190 10^3/uL (130-400); RBC 4.38 10^6/uL (4.36-5.78); RDW 12.7 % (11.8-14.1); RDW-SD 42.9 fL; WBC 9.14 10^3/uL (4.4-10.8)
[2021-05-28 22:03] LABS: ALT 26 U/L (16-63); AST 21 U/L (15-37); Alkaline Phosphatase 80 U/L (46-116); Anion Gap 9.7 mmol/L (3-11); BUN 27 mg/dL (7-18); Bilirubin, Total 0.5 mg/dL (0.2-1.0); CO2 28.3 mmol/L (21.0-32.0); CREATININE 1.2 mg/dL (0.70-1.30); Calcium 9.6 mg/dL (8.5-10.1); Chloride 103 mmol/L (98-107); Estimated GFR 58.71 (mL/min/1.73m2); Glucose 186 mg/dL (74-106); Potassium 3.9 mmol/L (3.5-5.1); Sodium 141 mmol/L (136-145); TSH (W/Ref FT4) 1.14 uIU/mL (0.36-3.74); Total Protein 7.8 g/dL (6.4-8.2); Vitamin B12 263 pg/mL (193-986)
== END 2021-05-28 21:21 | disposition home or self-care (01) ==
LOC: NCHCN 21:20
PROVIDERS: PCP Internal Medicine; Visit Provider Family Medicine
DX: R41.3 Other amnesia (principal); E11.3293 Type 2 diabetes mellitus with mild nonproliferative diabetic retinopathy without macular edema, bilateral; I27.20 Pulmonary hypertension, unspecified; I48.91 Unspecified atrial fibrillation
CPT/HCPCS: 80053; 82607; 84443; 85025

== ENCOUNTER 2021-08-09 09:50 | Outpatient (REF) | payer OTHER, SELFPAY ==
[2021-08-09 16:15] LABS: Abs Immature Grans 0.04 10^3/uL (0.0-0.06); Absolute Basophil Count 0.02 10^3/uL (0.0-0.2); Absolute Eosinophil Count 0.08 10^3/uL (0.0-0.7); Absolute Lymphocyte Count 0.69 10^3/uL (1.2-3.4); Absolute Monocyte Count 1.04 10^3/uL (0.1-0.8); Basophils % 0.2; HCT 33.2 % (40.0-50.0); HGB 10.3 g/dL (13.5-17.5); Immature Grans % 0.5; Lymphocytes % 8.2; MCH 29.3 pg (27.0-33.0); MCV 94.6 fL (80-95); MPV 12.9 fL (8.0-11.0); Monocytes % 12.4; Neutrophils % 77.7; Nucleated RBC 0 %; Platelet Count 175 10^3/uL (130-400); RBC 3.51 10^6/uL (4.36-5.78); RDW 15.2 % (11.8-14.1); RDW-SD 52.6 fL; WBC 8.37 10^3/uL (4.4-10.8)
[2021-08-09 16:51] LABS: ALT 24 U/L (16-63); AST 22 U/L (15-37); Albumin 3.5 g/dL (3.4-5.0); Alkaline Phosphatase 100 U/L (46-116); Anion Gap 9.6 mmol/L (3-11); BUN 52 mg/dL (7-18); Bilirubin, Total 0.7 mg/dL (0.2-1.0); CO2 26.4 mmol/L (21.0-32.0); CREATININE 1.7 mg/dL (0.70-1.30); Calcium 9.6 mg/dL (8.5-10.1); Chloride 104 mmol/L (98-107); Estimated GFR 39.28 (mL/min/1.73m2); NT-proBNP 16069 pg/mL (<300); Sodium 140 mmol/L (136-145); Total Protein 7.3 g/dL (6.4-8.2)
[2021-08-09 17:22] LABS: Glucose 43 mg/dL (74-106)
[2021-08-09 17:48] LABS: Hemoglobin A1C 6.9 % (<5.7)
== END 2021-08-09 09:51 | disposition home or self-care (01) ==
LOC: NCHCN 09:50
PROVIDERS: PCP Internal Medicine; Visit Provider Family Medicine
DX: E11.3293 Type 2 diabetes mellitus with mild nonproliferative diabetic retinopathy without macular edema, bilateral (principal); I10 Essential (primary) hypertension; I25.10 Atherosclerotic heart disease of native coronary artery without angina pectoris
CPT/HCPCS: 80053; 83036; 83880; 85025

== ENCOUNTER 2021-08-11 05:21 | Emergency (ER) | payer OTHER, SELFPAY ==
[2021-08-11] VITALS (24 sets, daily range): BP systolic 105–137; BP diastolic 55–83; PULSE 45–69; RESP 12–32; O2SAT 89–96
--- NOTE | 2021-08-11 05:15 | RT.EKG_ITS ---
APPROVED REPORT Exam: Resting ECG Reason for Exam: short of breath Patient Location: E HR:51 bpm ECG Measurements Heart Rate 51 AXIS CA [id number] P [id number] QRSd 119 QRS -56 QT 491 T 122 QTc 451 Conclusion Atrial fibrillation...V-rate 43- 52, irreg A-activity Ventricular premature complex...V complex w/ short R-R interval LAD, consider left anterior fascicular block...axis(240,-40), S>R II III aVF Abnormal T, consider ischemia, lateral leads...T <-0.20mV, I aVL V5 V6 Physician: no stemi
--- NOTE | 2021-08-11 05:30 | DI.RAD_ITS ---
Exam(s) XR PORTABLE CHEST AP EXAM: XR PORTABLE CHEST AP CLINICAL HISTORY: SOB, suspect CHF. TECHNIQUE: 2D digital imaging was performed. COMPARISON: Prior chest x-ray 04/29/2020 FINDINGS: Again noted is cardiomegaly, sternotomy and evidence of previous CABG.. The mediastinum is not widened. No evidence of pulmonary edema. Blunting of left costophrenic angle is again noted, either small ple ural effusion or pleural thickening. No pleural effusion evident on the right side. Mild pulmonary venous hypertension pattern. No overt airspace a pulmonary edema. IMPRESSION: Post CABG. Cardiomegaly. Pulmonary venous hypertension pattern but no overt pulmonary edema.Small l eft pleural effusion versus pleural thickening. DATA REPOSITORY: RADIATION DOSE DELIVERED: All CT scans at this facility use at least one of these dose optimization techniques: automated exposure control; mA and/or kV adjustment per patient size (includes targeted e xams where dose is matched to clinical indication); or iterative reconstruction.
--- NOTE | 2021-08-11 05:50 | ED.GENADUL_ITS ---
Discharge Plan Disposition Patient Disposition: HOME Condition: Good Discharge Details Clinical Impression: Bullous pemphigoid, CHF (congestive heart failure) Primary Care Provider: Nick Goode ED Provider: Sam Crews Home Meds and New Rx's Prescriptions: New prednisone 50 MG tablet 50 mg PO DAILY Qty: 5 RF: 0 Continued nitroglycerin [Nitrostat] 0.4 mg tablet, sublingual 0.4 mg SL Q5M PRNRF: 0 glipizide 10 mg tablet 10 mg PO BID RF: 0 losartan 100 mg tablet 100 mg PO DAILY RF: 0 Eliquis 5 mg tablet 5 mg PO BID RF: 0 clopidogrel [Plavix] 75 mg tablet 75 mg PO DAILY RF: 0 furosemide 40 mg tablet 40 mg PO DAILY RF: 0 Levemir FlexTouch U-100 Insuln 100 unit/mL (3 mL) insulin pen 40 unit subcut QHS RF: 0 atorvastatin [Lipitor] 40 MG tablet 80 mg PO DAILY RF: 0 metformin 500 MG tablet extended release 24 hr 1,000 mg PO BID RF: 0 isosorbide mononitrate [Imdur] 30 MG tablet extended release 24 hr 30 mg PO DAILY RF: 0 amlodipine 10 MG tablet 10 mg PO DAILY RF: 0 buspirone 15 mg tablet 5 mg PO BID RF: 0 Discharge Instructions Instructions: Heart Failure (ED) Additional Instructions: At this time you have evidence of what is called bullous pemphigoid. This may have occurred on its own, or it may be secondary to your sertraline or buspirone that you have started. Please STOP YOUR BUSPIRONE. Please use the clobetasol cream that we have provided you and apply it twice daily to the lesions on your leg. You have been prescribed oral prednisone as well. This is been sent here pharmacy on file. Please fill this and take it as directed. Please avoid any salty foods, and follow-up very closely with your primary care provider in the next 24 to 48 hours. If you notice any worsening of your symptoms, or any new symptoms such as vomiting, diarrhea, fever, chills, shortness of breath, chest pain, numbness, weakness, or fainting , please return immediately to the emergency department for reevaluation. Please follow up with your primary care provider as soon as possible for reassessment and reevaluation. As always, it was a pleasure participating in your medical care today. Referrals: Nick Goode MD [Primary Care Provider] - Medical Decision Making This is a 75-year-old male with a past medical history of atrial fibrillation on Eliquis, recent stent in February of 2021 and also on Plavix, as well as diabetes, hypertension, chronic kidney disease, pulmonary hypertension, regularly taking furosemide 40 milligrams orally, presents today for evaluation of rash and shortness of breath. Patient states over the last day he has noticed some mild increased swelling in his lower extremities bilaterally, however this evening he noticed new firm tense bulla on his left lower extremity. 1 was present about 12 hours ago, and the next 2 presented within the last 2 to 3 hours. He does admit to starting a new medication buspirone about a week and a half ago. He denies any other allergies except for penicillin allergy. He denies any oral lesions or genital pain. Additionally he does admit to some shortness of breath which she attributes to the swelling in his lower extremities. He denies any cough or fever. No other complaints time. He denies having ever had a rash like this before. The area with the blisters and somewhat itchy. He denies any trauma or mendes. Physical exam demonstrates evidence of 3/10 fluid-filled blisters on the left lower extremity, 1 by the toes, and 2 on the posterior calf. Negative Nikolsky sign. No redness or warmth. No lesions in the mouth or tongue. No other lesions at this time of the chest back or abdomen. Symptoms at this time appear consistent with bullous pemphigoid and appear inconsistent with pemphigus vulgaris, staph scalded skin syndrome, Russell-Familia syndrome. Uncertain as to what the cause please call the however it may certainly have started secondary to his new medication). Idiopathic pemphigus vulgaris is also on the differential. We will give Solu-Medrol, and apply betamethasone cream. We will get a chest x-ray to evaluate for evidence of CHF, and get a proBNP. Will monitor closely and reassess. 6:48 AM Laboratory work-up has returned, no white count and hemoglobin is stable at 10.2, electrolytes are stable, creatinine stable and unchanged at 1.7, and proBNP is 14,700 which is actually lower than his last BNP which was 16,000 at that time. Chest x-ray was relatively unremarkable, at rest. Patient is saturating at 95% 3 20-25 for respiratory rate. He is not shoulder limited to severe CHF at this time he shows no hypoxemia, no severe dyspnea. We will give 40 of IV Lasix here. At this time I do not see a clear indication for admission. Symptoms appearing consistent with COVID-19 or MRI. EKG is unchanged and unremarkable. Symptoms appear inconsistent with STEMI or ACS. While I do feel that the patient may be appropriate for outpatient management I do feel that this would be tension upon very close repeat follow-up in the next 24 to 48 hours for continued monitoring of worsening of his bulla, as well as reassessment of his fluid status. I will contact the on-call physician and will help discussed the case with them to make sure that this close follow-up can be facilitated. I spoke with Dr Shelton. She agrees with cooper and will facilitate close follow up in the next 36 hours. I have extensively reviewed the treatment plan and discharge instructions with the patient and their family. I have addressed all patient concerns at this time. The patient and family was made aware of what symptoms to monitor for that would warrant a return to the emergency department. Discussed the plan with the patient and family, they demonstrate verbal understanding and agreement with our assessment and plan at this time. The documentation in this chart was dictated using [employer] dictation software. Please excuse any dictation errors. FINDINGS: Limitations: Portable semi-erect view of the chest Tubes, catheters and devices: Monitoring leads project over the chest. Lungs: Lungs are mildly hyperinflated. No overt alveolar edema. No consolidative pneumonia. Pleural spaces: No pleural effusions. No pneumothorax. Heart/Mediastinum: Mild cardiomegaly. Central vascular congestion. Vasculature: Atherosclerotic calcification within a tortuous aorta. Diaphragm: Chronic elevation left hemidiaphragm. Bones/joints: Median sternotomy wires and surgical clips from prior CABG. Mild degenerative changes noted throughout the spine. IMPRESSION: Status post CABG with mild cardiomegaly and borderline congestive change. No overt edema or consolidative pneumonia. Thank you for allowing us to participate in the care of your patient. HPI General Date/Time Provider Initiated Documentation: 08/11/21 05:23 . HPI Narrative: This is a 75-year-old male with a past medical history of atrial fibrillation on Eliquis, recent stent in February of 2021 and also on Plavix, as well as diabetes, hypertension, chronic kidney disease, pulmonary hypertension, regularly taking furosemide 40 to 80 mg, presents today for evaluation of rash and shortness of breath. Patient states over the last day he has noticed some mild increased swelling in his lower extremities bilaterally, however this evening he noticed new firm tense bulla on his left lower extremity. 1 was present about 12 hours ago, and the next 2 presented within the last 2 to 3 hours. He does admit to starting a new medication buspirone about a week and a half ago. He denies any other allergies except for penicillin allergy. He denies any oral lesions or genital pain. Additionally he does admit to some shortness of breath which she attributes to the swelling in his lower extremities. He denies any cough or fever. No other complaints time. He denies having ever had a rash like this before. The area with the blisters and somewhat itchy. He denies any trauma or mendes. Related Data Home Medications Medication Instructions Recorded Confirmed amlodipine 10 mg PO DAILY 08/31/14 08/11/21 atorvastatin [Lipitor] 80 mg PO DAILY 08/31/14 08/11/21 isosorbide mononitrate [Imdur] 30 mg PO DAILY 08/31/14 08/11/21 metformin 1,000 mg PO BID 08/31/14 08/11/21 glipizide 10 mg tablet 10 mg PO BID 06/06/19 08/11/21 losartan 100 mg tablet 100 mg PO DAILY 06/06/19 08/11/21 nitroglycerin 0.4 mg sublingual 0.4 mg SL Q5M PRN 06/06/19 08/11/21 tablet apixaban 5 mg tablet 5 mg PO BID 03/05/21 08/11/21 clopidogrel 75 mg tablet 75 mg PO DAILY 03/05/21 08/11/21 furosemide 40 mg tablet 40 mg PO DAILY tab 08/02/21 08/11/21 insulin detemir U-100 100 unit/mL 40 unit SUBCUT QHS ml 08/02/21 08/11/21 (3 mL) subcutaneous pen buspirone 5 mg PO BID 08/11/21 08/11/21 prednisone 50 mg PO DAILY #5 tab 08/11/21 Previous Rx's Medication Instructions Recorded prednisone 50 mg PO DAILY #5 tab 08/11/21 Allergies Allergy/AdvReac Type Severity Reaction Status Date / Time Penicillins Allergy Severe Swelling/Ed Verified 08/11/21 05:35 vanessa niacin Allergy Intermediate Verified 08/11/21 05:35 General Stated Complaint: GenMedical HANH: 2 Review of Systems All systems reviewed & are unremarkable except as noted in HPI and below PFSH Active Problem List Peripheral edema (Acute) Hypertension (Acute) Heart failure with preserved ejection fraction (Acute) Atrial fibrillation (Acute) CAD (coronary artery disease) (Acute) Mitral regurgitation (Chronic) Medical History Anxiety Chronic kidney disease, stage 2 (mild) Dyslipidemia Hyperlipidemia Pulmonary hypertension Type 2 diabetes mellitus Social History Smoking/Tobacco Use Status: Former Tobacco Use Smoking risk assessment performed?: Yes Alcohol Intake: never Drug use: Never Substance use type: does not use What type of physical activity do you participate in: walking Duration: < 15 minutes/day Frequency: daily Do you feel safe at home: Yes Do you feel safe in your relationship?: Yes Exam Narrative Exam Narrative: 1.Const: Well-nourished, Well-developed, appearing stated age 2.Eyes: PERRL, no conjunctival injection, and symmetrical lids. 3.ENT: Atraumatic external nose and ears. Moist MM. Neck: Symmetric, trachea midline, No thyromegaly. No lesions in her mouth. No blisters of the tongue or lips. 4.CVS: +S1/S2, No murmurs or gallops. Peripheral pulses 2+ and equal in all extremities. Brisk capillary refill in all extremities. 5.RESP: Unlabored respiratory effort. Clear to auscultation bilaterally. No wheezes rales or rhonchi 6.GI: Soft, Nontender/Nondistended, No hepatosplenomegaly. No guarding or rebound. 7.MSK: Normocephalic/Atraumatic, Extremities w/o deformity or ttp No cyanosis or clubbing, Normal movement of all extremities, +1 to +2 pitting edema lower extremities bilaterally. 8.Skin: Warm, Dry. Patient does demonstrate 3 lesions of tense fluid-filled blisters. The first blister is of the toes of the left foot, and the other 2 are in the posterior calf. No significant tenderness. Negative Nikolsky sign. No redness or warmth. No evidence of trauma. 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 Sensation grossly intact, no focal neurologic deficits. 10.Psych: (AAO) x3. Appropriate mood and affect Course Vital Signs Vital signs: Vital Signs Pulse 69 08/11/21 05:31 Respiratory Rate 32 H 08/11/21 05:31 Blood Pressure 128/67 08/11/21 05:31 Pulse Oximetry 95 08/11/21 05:31 Pulse 69 08/11/21 05:31 Respiratory Rate 32 H 08/11/21 05:31 Blood Pressure 128/67 08/11/21 05:31 Pulse Oximetry 95 08/11/21 05:31 Pain Level 8 08/11/21 05:31
[2021-08-11 05:59] LABS: Abs Immature Grans 0.03 10^3/uL (0.0-0.06); Absolute Basophil Count 0.03 10^3/uL (0.0-0.2); Absolute Eosinophil Count 0.09 10^3/uL (0.0-0.7); Absolute Lymphocyte Count 0.85 10^3/uL (1.2-3.4); Absolute Monocyte Count 1.08 10^3/uL (0.1-0.8); Absolute Neutrophil Count 6.52 10^3/uL (1.2-6.7); Basophils % 0.3; HCT 32.7 % (40.0-50.0); HGB 10.2 g/dL (13.5-17.5); Immature Grans % 0.3; Lymphocytes % 9.9; MCH 29.4 pg (27.0-33.0); MCHC 31.2 % (32.0-36.0); MCV 94.2 fL (80-95); MPV 11.5 fL (8.0-11.0); Monocytes % 12.6; Neutrophils % 75.9; Nucleated RBC 0 %; Platelet Count 180 10^3/uL (130-400); RBC 3.47 10^6/uL (4.36-5.78); RDW 14.9 % (11.8-14.1); RDW-SD 51.7 fL
[2021-08-11] MEDS: methylPREDNISolone SUCC 125 MG VIAL IVP (06:22)
[2021-08-11] MEDS: Betamethasone Dip. 0.05% CR 15 GM TUBE TP (06:25)
[2021-08-11 06:26] LABS: ALT 22 U/L (16-63); AST < 5 U/L (15-37); Albumin 3.3 g/dL (3.4-5.0); Alkaline Phosphatase 99 U/L (46-116); Anion Gap 10.1 mmol/L (3-11); BUN 58 mg/dL (7-18); Bilirubin, Total 0.7 mg/dL (0.2-1.0); CO2 23.9 mmol/L (21.0-32.0); CREATININE 1.7 mg/dL (0.70-1.30); Calcium 9.9 mg/dL (8.5-10.1); Chloride 104 mmol/L (98-107); Estimated GFR 39.28 (mL/min/1.73m2); Glucose 131 mg/dL (74-106); NT-proBNP 14692 pg/mL (<300); Potassium 4.7 mmol/L (3.5-5.1); Sodium 138 mmol/L (136-145); Total Protein 7.4 g/dL (6.4-8.2)
[2021-08-11] MEDS: Furosemide 40 MG/4 ML VIAL IVP (07:02)
--- NOTE | 2021-08-11 07:36 | DI.VRAD_ITS ---
PROCEDURE INFORMATION: Exam: XR Chest Exam date and time: 08/11/2021 5:45 AM Age: 75 years old Clinical indication: Shortness of breath; Prior surgery; Surgery date: 1-6 months; Surgery type: Stent placed this summer but prior cabg tears ago; Patient HX: SOB, suspect chf TECHNIQUE: Imaging protocol: XR of the chest. Views: 1 view. COMPARISON: CR XR CHEST 2V PA LATERAL 04/29/2020 1:19 AM FINDINGS: Limitations: Portable semi-erect view of the chest Tubes, catheters and devices: Monitoring leads project over the chest. Lungs: Lungs are mildly hyperinflated. No overt alveolar edema. No consolidative pneumonia. Pleural spaces: No pleural effusions. No pneumothorax. Heart/Mediastinum: Mild cardiomegaly. Central vascular congestion. Vasculature: Atherosclerotic calcification within a tortuous aorta. Diaphragm: Chronic elevation left hemidiaphragm. Bones/joints: Median sternotomy wires and surgical clips from prior CABG. Mild degenerative changes noted throughout the spine. IMPRESSION: Status post CABG with mild cardiomegaly and borderline congestive change. No overt edema or consolidative pneumonia. Dictated and Authenticated by: Beto Coles MD. Ordering:MAURICE Vargas MD
== END 2021-08-11 07:55 | disposition home or self-care (01) ==
PROVIDERS: Emergency Provider Student in an Organized Health Care Education/Training Program; PCP Internal Medicine
DX: L12.0 Bullous pemphigoid (principal); I13.0 Hypertensive heart and chronic kidney disease with heart failure and stage 1 through stage 4 chronic kidney disease, or unspecified chronic kidney disease; I50.9 Heart failure, unspecified; N18.2 Chronic kidney disease, stage 2 (mild); E11.22 Type 2 diabetes mellitus with diabetic chronic kidney disease
CPT/HCPCS: 80053; 93005; 96374; 96375; 99284; 71045; 83880; 85025; 93010; J1940; J2930

== ENCOUNTER → 2021-08-20 12:45 | Outpatient (BNVA) | payer OTHER, SELFPAY | PROVIDERS: PCP Internal Medicine; Referring Provider Internal Medicine; Visit Provider Internal Medicine Cardiovascular Disease | DX: I50.30 Unspecified diastolic (congestive) heart failure (principal); I25.10 Atherosclerotic heart disease of native coronary artery without angina pectoris; I11.0 Hypertensive heart disease with heart failure; R60.9 Edema, unspecified; I48.20 Chronic atrial fibrillation, unspecified | CPT/HCPCS: 99215 ==

== ENCOUNTER 2021-08-30 15:37 | Outpatient (REF) | payer OTHER, SELFPAY ==
[2021-08-30 21:17] LABS: Abs Immature Grans 0.04 10^3/uL (0.0-0.06); Absolute Basophil Count 0.02 10^3/uL (0.0-0.2); Absolute Eosinophil Count 0.07 10^3/uL (0.0-0.7); Absolute Lymphocyte Count 0.81 10^3/uL (1.2-3.4); Absolute Monocyte Count 1.18 10^3/uL (0.1-0.8); Absolute Neutrophil Count 8.15 10^3/uL (1.2-6.7); Basophils % 0.2; Eosinophils % 0.7; HCT 29.3 % (40.0-50.0); HGB 9.5 g/dL (13.5-17.5); Immature Grans % 0.4; Lymphocytes % 7.9; MCH 28.9 pg (27.0-33.0); MCHC 32.4 % (32.0-36.0); MCV 89.1 fL (80-95); Monocytes % 11.5; Neutrophils % 79.3; Nucleated RBC 0 %; Platelet Count 242 10^3/uL (130-400); RBC 3.29 10^6/uL (4.36-5.78); RDW 14.8 % (11.8-14.1); RDW-SD 47.9 fL; WBC 10.27 10^3/uL (4.4-10.8)
[2021-08-30 21:50] LABS: ALT 29 U/L (16-63); AST 51 U/L (15-37); Albumin 3.2 g/dL (3.4-5.0); Alkaline Phosphatase 95 U/L (46-116); BUN 76 mg/dL (7-18); Bilirubin, Total 0.9 mg/dL (0.2-1.0); CO2 20.5 mmol/L (21.0-32.0); CREATININE 2.8 mg/dL (0.70-1.30); Calcium 8.9 mg/dL (8.5-10.1); Estimated GFR 22.08 (mL/min/1.73m2); Glucose 308 mg/dL (74-106); Total Protein 6.9 g/dL (6.4-8.2)
[2021-08-30 23:16] LABS: Sodium 129 mmol/L (136-145)
[2021-08-30 23:17] LABS: Potassium 5.8 mmol/L (3.5-5.1)
[2021-08-30 23:18] LABS: Anion Gap 20.1 mmol/L (3-11); Chloride 95 mmol/L (98-107)
== END 2021-08-30 15:38 | disposition home or self-care (01) ==
LOC: NCHCN 15:37
PROVIDERS: PCP Internal Medicine; Visit Provider Family Medicine
DX: I50.9 Heart failure, unspecified (principal); R41.82 Altered mental status, unspecified
CPT/HCPCS: 80053; 85025